=== PATIENT | male | born 1960 | race Hispanic/Latino ===

== ENCOUNTER → 2018-12-27 | Day surgery (SDC) | payer BC ==
[~2018-12-27] MED LIST: AMILORIDE HCL5 MG PO; CARVEDILOL3.125 MG PO; HYDROCHLOROTHIA25 MG PO; HYOSCYAMINE 0.125 MG TAB ONE; JANUMET 50-5001 EACH PO; LIDOCAINE HCL 2% LOCAL INJ 5 ML SDV VIAL INJ ONE; MIDAZOLAM HCL 2 MG/2 ML VIAL ONE; MULTI-VITAMIN1 EACH PO; PROPOFOL IV EMULSION 10 MG/ML 20 ML VIAL ONE
--- OUTSIDE RECORDS SUMMARY | 2018-12-27 09:56 | XMS REPORT | Continuity of Care Document ---
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 Name Role Phone [employer] Information [employer] Unavailable Unavailable Problems Problem Status Onset Date Classification Date Reported Comments Source DX: E11.9=TYPE 2 DIABETES MELLITUS WITHO Active 12/24/2018 [facility] Cough 12/05/2017 06/24/2018 [facility] Essential (primary) hypertension 12/05/2017 06/24/2018 [facility] Acute bronchitis, unspecified 12/05/2017 06/24/2018 [facility] SOB/ HEADACHE Active 12/05/2017 [facility] Other abnormal glucose 06/24/2018 [facility] Medications Medication Details Route Status Patient Instructions Ordering Provider Order Date Source lisinopril 5 mg oral tablet 5 mg=1 tab, PO, Daily, # 30 tab, 0 Refill(s) Active 12/05/2017 [facility] Azithromycin 5 Day Dose Pack 250 mg oral tablet See Instructions, Take 2 tablets by mouth the first day then 1 tablet by mouth days 2-5., X 5 day, # 6 tab, 0 Refill(s) No Longer Active 12/05/2017 [facility] benzonatate 100 MG Oral Capsule [Tessalon Perles] 100 mg=1 cap, PO, TID, PRN as needed for cough, X 5 day, # 15 caplet, 0 Refill(s) No Longer Active 12/05/2017 [facility] Robitussin 100 mg, 5 mL, Route: PO, Drug Form: LIQ, Dosing Weight 97.727, kg, ONCE, Start date: 12/05/17 3:35:00 CDT, Stop date: 12/05/17 3:35:00 CDTNotes: (Same as: Robitussin) Inactive 12/05/2017 [facility] Hydralazine 10 mg, Route: IV, ONCE, Dosing Weight 97.727, kg, Start date: 12/05/17 2:49:00 CDT, Stop date: 12/05/17 2:49:00 CDT Inactive 12/05/2017 [facility] Allergies, Adverse Reactions, Alerts Substance Category Reaction Severity Reaction type Status Date Reported Comments Source No Known Medication Allergies Assertion Drug allergy [facility] Immunizations No Data Provided for This Section Results Order Name Results Value Reference Range Date Interpretation Comments Source CARDIAC ENZYMES BNP 78 <=100 pg/mL 12/05/2017 [facility] CARDIAC ENZYMES Troponin-I <0.02 0.00 - 0.40 12/05/2017 [facility] CHEM PANEL Phosphorus 3.0 2.5 - 4.5 12/05/2017 [facility] CHEM PANEL Magnesium Lvl 2.1 1.8 - 2.4 12/05/2017 [facility] ELECTROLYTES AGAP 7.2 10.0 - 20.0 12/05/2017 [facility] ELECTROLYTES Globulin 3.7 2.7 - 4.2 12/05/2017 [facility] ELECTROLYTES A/G Ratio 1.1 0.7 - 1.6 12/05/2017 [facility] ELECTROLYTES B/C Ratio 14 6 - 25 12/05/2017 [facility] ELECTROLYTES eGFR 74 12/05/2017 Result Comment: The eGFR is calculated using the CKD-EPI formula. In most young, healthy individuals the eGFR will be >90 mL/min/1.73m2. The eGFR declines with age. An eGFR of 60-89 may be normal in some populations, particularly the elderly, for whom the CKD-EPI formula has not been extensively validated. Use of the eGFR is not recommended in the following populations:

Individuals with unstable creatinine concentrations, including patients and those with serious co-morbid conditions.

Patients with extremes in muscle mass or diet.

The data above are obtained from the National Kidney Disease Education Program (NKDEP) which additionally recommends that when the eGFR is used in patients with extremes of body mass index for purposes of drug dosing, the eGFR should be multiplied by the estimated BMI. [facility] ELECTROLYTES AST 14 0 - 37 12/05/2017 [facility] ELECTROLYTES Alk Phos 100 39 - 136 12/05/2017 [facility] ELECTROLYTES Bili Total 0.3 0.2 - 1.3 12/05/2017 [facility] ELECTROLYTES ALT 31 0 - 65 12/05/2017 [facility] Creatinine Lvl 1.10 0.50 - 1.40 12/05/2017 [facility] ELECTROLYTES Sodium Lvl 136 135 - 145 12/05/2017 [facility] ELECTROLYTES Chloride Lvl 99 95 - 109 12/05/2017 [facility] ELECTROLYTES Potassium Lvl 4.2 3.5 - 5.1 12/05/2017 [facility] ELECTROLYTES CO2 34 24 - 32 12/05/2017 [facility] ELECTROLYTES Calcium Lvl 8.9 8.5 - 10.5 12/05/2017 [facility] ELECTROLYTES Albumin Lvl 3.9 3.5 - 5.0 12/05/2017 [facility] ELECTROLYTES Total Protein 7.6 6.4 - 8.4 12/05/2017 [facility] ELECTROLYTES Glucose Lvl 289 70 - 99 12/05/2017 [facility] ELECTROLYTES BUN 15 7 - 22 12/05/2017 [facility] HEMATOLOGY PTT 31.0 22.9 - 35.8 12/05/2017 [facility] HEMATOLOGY PT 12.5 12.0 - 14.7 12/05/2017 [facility] HEMATOLOGY INR 0.93 0.85 - 1.17 12/05/2017 [facility] HEMATOLOGY Hct 41.9 42.0 - 54.0 12/05/2017 [facility] HEMATOLOGY RBC 4.87 4.70 - 6.10 12/05/2017 [facility] HEMATOLOGY Hgb 14.4 14.0 - 18.0 12/05/2017 [facility] HEMATOLOGY WBC 8.6 3.7 - 10.4 12/05/2017 [facility] HEMATOLOGY MCHC 34.4 32.0 - 36.0 12/05/2017 [facility] HEMATOLOGY MCH 29.5 27.0 - 31.0 12/05/2017 [facility] HEMATOLOGY MCV 85.9 80.0 - 94.0 12/05/2017 [facility] HEMATOLOGY MPV 10.6 7.4 - 10.4 12/05/2017 [facility] HEMATOLOGY RDW 13.7 11.5 - 14.5 12/05/2017 [facility] HEMATOLOGY Platelet 119 133 - 450 12/05/2017 [facility] HEMATOLOGY Eosinophils # 0.3 0.0 - 0.5 12/05/2017 [facility] HEMATOLOGY Lymphocytes # 1.8 1.0 - 5.5 12/05/2017 [facility] HEMATOLOGY Monocytes # 0.9 0.0 - 0.8 12/05/2017 [facility] HEMATOLOGY Segs 64.3 45.0 - 75.0 12/05/2017 [facility] HEMATOLOGY Basophils 0.4 0.0 - 1.0 12/05/2017 [facility] HEMATOLOGY Eosinophils 3.3 0.0 - 4.0 12/05/2017 [facility] HEMATOLOGY Monocytes 10.5 2.0 - 12.0 12/05/2017 [facility] HEMATOLOGY Lymphocytes 21.5 20.0 - 40.0 12/05/2017 [facility] HEMATOLOGY Neutrophils # 5.5 1.5 - 8.1 12/05/2017 [facility] Pathology Reports No Data Provided for This Section Diagnostic Reports Report Value Date Source Chest 1view DX Patient Name: HERMINIA OCAMPO : 1960; Age: 57 years y/o Male MR: [id number] * CHEST, portable, 1 view HISTORY: Dyspnea. COMPARISON: 05/08/2009. A study of 12/24/2008 was also reviewed. TECHNIQUE: A portable frontal radiograph of the chest was obtained. FINDINGS: The lungs are clear. There are no pulmonary infiltrates or pleural effusions. The heart is normal in size. The prior studies demonstrated postoperative change involving the right shoulder including resection of the distal clavicle and 3 tendon fixation devices in the right humeral head. These are not visualized on this study. The regional skeleton is otherwise unremarkable. IMPRESSION: 1. No active disease. 2. Postoperative changes, right shoulder (demonstrated on prior studies). SL: AURA 12/05/2017 [facility] Consultation Notes No Data Provided for This Section Discharge Summaries No Data Provided for This Section History and Physicals No Data Provided for This Section Vital Signs Vital Sign Value Date Comments Source Heart Rate 73 12/05/2017 [facility] Systolic (mm Hg) 150 12/05/2017 [facility] Diastolic (mm Hg) 96 12/05/2017 [facility] Respitory Rate 20 12/05/2017 [facility] Systolic (mm Hg) 175 12/05/2017 [facility] Diastolic (mm Hg) 100 12/05/2017 [facility] Heart Rate 75 12/05/2017 [facility] Respitory Rate 20 12/05/2017 [facility] Temperature Oral (F) 98.5 F 12/05/2017 [facility] Respitory Rate 20 12/05/2017 [facility] Systolic (mm Hg) 185 12/05/2017 [facility] Diastolic (mm Hg) 122 12/05/2017 [facility] Heart Rate 79 12/05/2017 [facility] BMI Calculated 30.91 12/05/2017 [facility] Height 177.8 cm 12/05/2017 [facility] Weight 97.727 12/05/2017 [facility] Temperature Oral (F) 98.6 F 12/05/2017 [facility] Encounters Location Location Details Encounter Type Encounter Number Reason For Visit Attending Provider ADM Date DC Date Status Source [facility] Emergency [id number] Claire Arzate 12/05/2017 12/05/2017 [facility] Outpatient [id number] Darshan Darren 11/10/2018 11/11/2018 [facility] Procedures No Data Provided for This Section Assessment and Plan No Data Provided for This Section Plan of Care No Data Provided for This Section Social History Social History Date Source Social History TypeResponse Smoking Status Never smoker; Exposure to Tobacco Smoke None; Cigarette Smoking Last 365 Days No; Reg Smoking Cessation Counseling No entered on: 12/05/17 12/05/2017 [facility] Family History No Data Provided for This Section Advance Directives No Data Provided for This Section Functional Status No Data Provided for This Section
--- OUTSIDE RECORDS SUMMARY | 2018-12-27 09:56 | XMS REPORT | Summary of Care ---
Author Author [facility] Organization [facility] Address Unknown Phone Unavailable Encounter [facility] [place](FIN) [id number] Date(s): 12/05/17 - 12/05/17 [facility] [address] [place] [address]- Encounter Diagnosis Cough (Discharge Diagnosis) - 12/05/17 Hypertension (Discharge Diagnosis) - 12/05/17 Acute bronchitis (Discharge Diagnosis) - 12/05/17 Acute bronchitis, unspecified (Final) - 12/11/17 Essential (primary) hypertension (Final) - Other abnormal glucose (Final) - Discharge Disposition: Home or Self Care Attending Physician: Claire Arzate DO Vital Signs 1 2 3 Most recent to oldest [Reference Range]: 177.8 cm (12/05/17 2:14 AM) Height 98.5 DegF (12/05/17 2:34 AM) 98.6 DegF (12/05/17 2:14 AM) Temperature Oral [96.4-99.1 DegF] 150/96 mmHg *HI* (12/05/17 3:59 AM) 175/100 mmHg *HI* (12/05/17 3:15 AM) 185/122 mmHg *HI* (12/05/17 2:34 AM) Blood Pressure [90-140/60-90 mmHg] 20 BRMIN (12/05/17 3:59 AM) 20 BRMIN (12/05/17 3:15 AM) 20 BRMIN (12/05/17 2:34 AM) Respiratory Rate [14-20 BRMIN] 73 bpm (12/05/17 3:59 AM) 75 bpm (12/05/17 3:15 AM) 79 bpm (12/05/17 2:34 AM) Peripheral Pulse Rate [60-100 bpm] 97.727 kg (12/05/17 2:14 AM) Weight 30.91 m2 (12/05/17 2:14 AM) Body Mass Index Problem List No data available for this section Allergies, Adverse Reactions, Alerts Substance Reaction Severity Status NKDA Active Medications Azithromycin 5 Day Dose Pack 250 mg oral tablet See Instructions, Take 2 tablets by mouth the first day then 1 tablet by mouth d ays 2-5., X 5 day, # 6 tab, 0 Refill(s) Start Date: 12/05/17 Stop Date: 12/10/17 Status: Completed hydrALAZINE 10 mg, Route: IV, ONCE, Dosing Weight 97.727, kg, Start date: 12/05/17 2:49:00 C DT, Stop date: 12/05/17 2:49:00 CDT Start Date: 12/05/17 Stop Date: 12/05/17 Status: Completed lisinopril 5 mg oral tablet 5 mg=1 tab, PO, Daily, # 30 tab, 0 Refill(s) Start Date: 12/05/17 Stop Date: 01/04/18 Status: Ordered Robitussin 100 mg, 5 mL, Route: PO, Drug Form: LIQ, Dosing Weight 97.727, kg, ONCE, Start d ate: 12/05/17 3:35:00 CDT, Stop date: 12/05/17 3:35:00 CDT Notes: (Same as: Robitussin) Start Date: 12/05/17 Stop Date: 12/05/17 Status: Completed Tessalon Perles 100 mg oral capsule 100 mg=1 cap, PO, TID, PRN as needed for cough, X 5 day, # 15 caplet, 0 Refill(s ) Start Date: 12/05/17 Stop Date: 12/10/17 Status: Completed Results ELECTROLYTES Most recent to 1 oldest [Reference Range]: Sodium Lvl [135-145 136 mEq/L mEq/L] (12/05/17 2:42 AM) Potassium Lvl 4.2 mEq/L [3.5-5.1 mEq/L] (12/05/17 2:42 AM) Chloride Lvl [95-109 99 mEq/L mEq/L] (12/05/17 2:42 AM) CO2 [24-32 mEq/L] 34 mEq/L *HI* (12/05/17 2:42 AM) AGAP [10.0-20.0 7.2 mEq/L mEq/L] *LOW* (12/05/17 2:42 AM) CHEM PANEL Most recent to 1 oldest [Reference Range]: Creatinine Lvl 1.10 mg/dL [0.50-1.40 mg/dL] (12/05/17 2:42 AM) eGFR 74 mL/min/1.73m2 1 *NA* (12/05/17 2:42 AM) BUN [7-22 mg/dL] 15 mg/dL (12/05/17 2:42 AM) B/C Ratio [6-25] 14 (12/05/17 2:42 AM) Glucose Lvl [70-99 289 mg/dL mg/dL] *HI* (12/05/17 2:42 AM) Total Protein 7.6 g/dL [6.4-8.4 g/dL] (12/05/17 2:42 AM) Albumin Lvl [3.5-5.0 3.9 g/dL g/dL] (12/05/17 2:42 AM) Globulin [2.7-4.2 3.7 g/dL g/dL] (12/05/17 2:42 AM) A/G Ratio [0.7-1.6] 1.1 (12/05/17 2:42 AM) Calcium Lvl 8.9 mg/dL [8.5-10.5 mg/dL] (12/05/17 2:42 AM) Phosphorus [2.5-4.5 3.0 mg/dL mg/dL] (12/05/17 2:42 AM) Magnesium Lvl 2.1 mg/dL [1.8-2.4 mg/dL] (12/05/17 2:42 AM) ALT [0-65 unit/L] 31 unit/L (12/05/17 2:42 AM) AST [0-37 unit/L] 14 unit/L (12/05/17 2:42 AM) Alk Phos [39-136 100 unit/L unit/L] (12/05/17 2:42 AM) Bili Total [0.2-1.3 0.3 mg/dL mg/dL] (12/05/17 2:42 AM) 1Result Comment: The eGFR is calculated using the [...] from the National Kidney Disease Education Program ( NKDEP) which additionally recommends that when the eGFR is used in patients with extremes of body mass index for purposes of drug dosing, the eGFR should be mul tiplied by the estimated BMI. CARDIAC ENZYMES Most recent to 1 oldest [Reference Range]: Troponin-I <0.02 ng/mL [0.00-0.40 ng/mL] (12/05/17 2:42 AM) BNP [<=100 pg/mL] 78 pg/mL (12/05/17 2:42 AM) HEMATOLOGY Most recent to 1 oldest [Reference Range]: WBC [3.7-10.4 K/CMM] 8.6 K/CMM (12/05/17 2:42 AM) RBC [4.70-6.10 4.87 M/CMM M/CMM] (12/05/17 2:42 AM) Hgb [14.0-18.0 g/dL] 14.4 g/dL (12/05/17 2:42 AM) Hct [42.0-54.0 %] 41.9 % *LOW* (12/05/17 2:42 AM) MCV [80.0-94.0 fL] 85.9 fL (12/05/17 2:42 AM) MCH [27.0-31.0 pg] 29.5 pg (12/05/17 2:42 AM) MCHC [32.0-36.0 34.4 g/dL g/dL] (12/05/17 2:42 AM) RDW [11.5-14.5 %] 13.7 % (12/05/17 2:42 AM) MPV [7.4-10.4 fL] 10.6 fL *HI* (12/05/17 2:42 AM) Platelet [133-450 119 K/CMM K/CMM] *LOW* (12/05/17 2:42 AM) Segs [45.0-75.0 %] 64.3 % (12/05/17 2:42 AM) Lymphocytes 21.5 % [20.0-40.0 %] (12/05/17 2:42 AM) Monocytes [2.0-12.0 10.5 % %] (12/05/17 2:42 AM) Eosinophils [0.0-4.0 3.3 % %] (12/05/17 2:42 AM) Basophils [0.0-1.0 0.4 % %] (12/05/17 2:42 AM) Neutrophils # 5.5 K/CMM [1.5-8.1 K/CMM] (12/05/17 2:42 AM) Lymphocytes # 1.8 K/CMM [1.0-5.5 K/CMM] (12/05/17 2:42 AM) Monocytes # [0.0-0.8 0.9 K/CMM K/CMM] *HI* (12/05/17 2:42 AM) Eosinophils # 0.3 K/CMM [0.0-0.5 K/CMM] (12/05/17 2:42 AM) PT [12.0-14.7 12.5 seconds seconds] (12/05/17 2:42 AM) INR [0.85-1.17] 0.93 (12/05/17 2:42 AM) PTT [22.9-35.8 31.0 seconds seconds] (12/05/17 2:42 AM) Immunizations No data available for this section Procedures No data available for this section Social History Social History Type Response Smoking Status Never smoker; Exposure to Tobacco Smoke None; Cigarette Smoking Last 365 Days No; Reg Smoking Cessation Counseling No entered on: 12/05/17 Assessment and Plan No data available for this section
--- OUTSIDE RECORDS SUMMARY | 2018-12-27 09:56 | XMS REPORT | Summary of Care ---
Author Author [facility] Organization [facility] Address Unknown Phone Unavailable Encounter [facility](FIN) [id number] Date(s): 11/10/18 - 11/10/18 [facility] [address] [place] [address]- [phone] Discharge Disposition: Home or Self Care Attending Physician: Darshan Banks Referring Physician: Darshan Banks Vital Signs No data available for this section Problem List No data available for this section Allergies, Adverse Reactions, Alerts No Known Medication Allergies Medications No data available for this section Results No data available for this section Immunizations No data available for this section Procedures No data available for this section Social History Social History Type Response Smoking Status Never smoker; Exposure to Tobacco Smoke None; Cigarette Smoking Last 365 Days No; Reg Smoking Cessation Counseling No entered on: 12/05/17 Assessment and Plan No data available for this section
--- OUTSIDE RECORDS SUMMARY | 2018-12-27 09:56 | XMS REPORT ---
Author Author [facility] Address Unknown Phone Unavailable Care Team Providers Care [employer] Name Role Phone Unavailable Unavailable Problems This patient has no known problems. Allergies, Adverse Reactions, Alerts This patient has no known allergies or adverse reactions. Medications This patient has no known medications. Encounters Start Date/Time End Date/Time Encounter Type Admission Type Attending Clinicians Care Facility Care Department Encounter ID 2018-12-25 08:45:00 2018-12-25 08:45:00 Outpatient [facility] [id number] 2018-11-10 08:33:00 2018-11-10 08:33:00 Outpatient [facility] [id number]
--- NOTE | 2018-12-27 17:33 | Operative Report ---
DATE OF PROCEDURE: 12/27/2018 SURGEON: Get Sanchez MD PROCEDURE: Colonoscopy with polypectomy. INDICATIONS FOR COLONOSCOPY: Colorectal cancer screening. MEDICATIONS: The patient was done under MAC, please see anesthesiologist's note. PROCEDURE IN DETAIL: With the patient in left lateral decubitus position, a flexible fiberoptic Olympus colonoscope was inserted into the rectum with ease and advanced all the way to the cecum. Two polyps were removed per cold snare polypectomy and cold biopsy forceps from the cecum. There was a single diverticulum in the cecum. The scope was then withdrawn slowly. Mucosa overlying the ascending colon appeared to be within normal limits. Approximately 1-cm polyp was removed per snare electrocautery from the transverse colon. The descending appeared to be within normal limits. One polyp was hot biopsied from the sigmoid colon and two polyps were hot biopsied from the rectum. The scope was then retroflexed into the distal rectum and small internal hemorrhoids were noted, none of which was actively bleeding. The scope was then straightened out. It was subsequently withdrawn. The patient tolerated the procedure well. IMPRESSION: 1. Cecal polyps x2, removed per cold snare polypectomy and cold biopsy forceps. 2. Single diverticulum cecum. 3. Transverse colon polyp approximately 1 cm in size, sessile, removed per snare electrocautery. 4. Sigmoid colon polyp x1, hot biopsied. 5. Rectal polyps x2, hot biopsied. 6. Internal hemorrhoids, none actively bleeding. PLAN: Follow up histology. Initiate high-fiber, low-fat diet. Initiate high-fiber supplement. The patient might benefit from a followup colonoscopy in 3 years. Get Sanchez MD [facility] /[id number] cc: Kelsey Arreguin DO
== END | disposition home or self-care (01) ==
LOC: OR 07:25
PROVIDERS: ATTEND Internal Medicine Gastroenterology
DX: Z12.11 Encounter for screening for malignant neoplasm of colon (principal); D12.3 Benign neoplasm of transverse colon; K64.8 Other hemorrhoids; K62.1 Rectal polyp; E11.9 Type 2 diabetes mellitus without complications; K21.9 Gastro-esophageal reflux disease without esophagitis; I10 Essential (primary) hypertension; G47.33 Obstructive sleep apnea (adult) (pediatric); F41.9 Anxiety disorder, unspecified; Z01.810 Encounter for preprocedural cardiovascular examination; K63.5 Polyp of colon; K57.30 Diverticulosis of large intestine without perforation or abscess without bleeding; Z79.84 Long term (current) use of oral hypoglycemic drugs
CPT/HCPCS: 36415; 45384; 45385; 82948; 93005; J2001; J2250; J2704

== ENCOUNTER → 2022-09-24 | Day surgery (SDC) | payer OTHER ==
[~2022-09-24] MED LIST changes: +AMLODIPINE BESYL5 MG PO; +B COMPLEX1 EACH; +CARVEDILOL12.5 MG PO; +CINNAMON-CHROM1 EACH; +CURCUMIN PHYTO500 MG; +D3-5000125 MCG; +DYMISTA NASAL S23 GM INH; +FAMOTIDINE20 MG PO; +FLOMAX0.4 MG PO; +FLONASE ALLERG9.9 ML INH; +FUROSEMIDE40 MG PO; -HYOSCYAMINE 0.125 MG TAB ONE; +HYOSCYAMINE SULFATE 0.5 MG/ML INJ ONE; +JANUMET 50-1,01 EACH; +JANUMET 50-1,01 EACH PO; +LACTATED RINGER'S 1,000 ML ONE; -LIDOCAINE HCL 2% LOCAL INJ 5 ML SDV VIAL INJ ONE; +LOSARTAN POTASS25 MG PO; +OMEPRAZOLE40 MG PO; +PROBIOTIC & AC1 EACH PO; +REVATIO20 MG PO; +TYLENOL325 M2 PO; +VICODIN HP 10-1 EAC1 PO; +[UNRECOGNIZED DRUG - OTHER]; +[UNRECOGNIZED DRUG - OTHER] PO
[2022-09-24 11:26] VITALS: TEMP 97
[2022-09-24 11:48] VITALS: BP 128/88; PULSE 63; RESP 18; O2SAT 98
== END | disposition home or self-care (01) ==
LOC: OR 08:34
PROVIDERS: ATTEND Internal Medicine Gastroenterology
DX: Z09 Encounter for follow-up examination after completed treatment for conditions other than malignant neoplasm (principal); K63.5 Polyp of colon; K57.30 Diverticulosis of large intestine without perforation or abscess without bleeding; K64.8 Other hemorrhoids; G47.33 Obstructive sleep apnea (adult) (pediatric); I10 Essential (primary) hypertension; I49.9 Cardiac arrhythmia, unspecified; E11.9 Type 2 diabetes mellitus without complications; M06.9 Rheumatoid arthritis, unspecified; N40.0 Benign prostatic hyperplasia without lower urinary tract symptoms; Z79.84 Long term (current) use of oral hypoglycemic drugs; Z79.899 Other long term (current) drug therapy
CPT/HCPCS: 36415; 45380; 45385; 82948; J1980; J2250; J2704; J7121; 45378